=== PATIENT | male | born 1985 | race Caucasian/White ===

== ENCOUNTER 2019-10-30 07:58 | Emergency (ER) | payer SELFPAY ==
[~2019-10-30] VITALS: Ht 172.7 cm; Wt 81.2 kg
[2019-10-30 08:01] VITALS: BP 137/102
--- NOTE | 2019-10-30 08:21 | NUR ---
Patient given discharge instructions and they have confirmed that they understand the instructions. Patient ambulatory with steady gait.
== END 2019-10-30 08:22 | disposition home or self-care (01) ==
LOC: ED 08:15
DX: K08.89 Other specified disorders of teeth and supporting structures (principal); F17.210 Nicotine dependence, cigarettes, uncomplicated
CPT/HCPCS: 99283

== ENCOUNTER 2020-10-12 13:43 | Emergency (ER) | payer OTHER ==
[~2020-10-12] VITALS: Ht 170.2 cm; Wt 91.9 kg
[2020-10-12 13:48] VITALS: BP 142/97
[2020-10-12 14:19] LABS: BASOPHILS % (AUTO) 1 % (0-1); EOSINOPHILS % (AUTO) 1 % (1-7); LYMPHOCYTES % (AUTO) 16 % (22-44); MEAN CORPUSCULAR HEMOGLOBIN 31.7 pg (27.5-34.5); MEAN PLATELET VOLUME 8.6 fL (7.4-10.4); MONOCYTES % (AUTO) 11 % (2-9); NEUTROPHILS % (AUTO) 70 % (42-75); PLATELET COUNT 325 x10^3/uL (130-400); RED BLOOD COUNT 5.13 x10^6/uL (4.38-5.82); RED CELL DISTRIBUTION WIDTH 13.7 % (9.4-14.8)
--- NOTE | 2020-10-12 14:21 | NUR ---
Garage doors down, safety precautions initiated. Sitter in line of site.
--- NOTE | 2020-10-12 14:25 | NUR ---
Pt now denying that he is SI, says he wants to know where his head is at. Says he doesn't want to use meth anymore and he is having delusions of people.
[2020-10-12 14:29] LABS: ALANINE AMINOTRANSFERASE 45 U/L (12-78); ALBUMIN 4.5 g/dL (3.4-5.0); ANION GAP 11 mmol/L (5-15); CALCIUM 9.5 mg/dL (8.5-10.1); CHLORIDE 107 mmol/L (98-107); SALICYLATE LEVEL 1.8 mg/dL (2.8-20.0)
[2020-10-12 14:32] LABS: ALKALINE PHOSPHATASE 59 U/L (45-117); CREATININE 1.23 mg/dL (0.7-1.3); TOTAL PROTEIN 8.3 g/dL (6.4-8.2)
[2020-10-12 15:26] LABS: AMPHETAMINE SCREEN, URINE Positive (Negative); BARBITURATE SCREEN, URINE Negative (Negative); BENZODIAZEPINE SCREEN, URINE Negative (Negative); CANNABINOID SCREEN, URINE Negative (Negative); COCAINE SCREEN, URINE Negative (Negative); METHADONE SCREEN, URINE Negative (Negative); OPIATE SCREEN, URINE Negative (Negative)
--- NOTE | 2020-10-12 15:29 | NUR ---
Per dr gomes, pt to be dc.
--- NOTE | 2020-10-12 16:02 | NUR ---
Pt denies any SI/HI is alert and oriented and able to navigate the community and its resources safely, copy of drug recovery and counseling resources provided to pt.
== END 2020-10-12 16:21 | disposition home or self-care (01) ==
LOC: ED 15:31
DX: F41.1 Generalized anxiety disorder (principal); F20.0 Paranoid schizophrenia
CPT/HCPCS: 36415; 80053; 80299; 80307; 80320; 80329; 85025; 99283; G0480